=== PATIENT | female | born 1940 | race Two or more races ===

== ENCOUNTER 2023-06-25 12:18 | Emergency (ER) | payer OTHER ==
[~2023-06-25] VITALS: Ht 157.5 cm; Wt 54.0 kg
[2023-06-25] MEDS ORDERED: COZAAR25 MG PO (12:26)
== END 2023-06-25 15:27 | disposition home or self-care (01) ==
LOC: ER 12:18
DX: B30.1 Conjunctivitis due to adenovirus (principal); M19.90 Unspecified osteoarthritis, unspecified site; Z98.41 Cataract extraction status, right eye; Z20.822 Contact with and (suspected) exposure to COVID-19
CPT/HCPCS: 36415; 93005; 96365; 99284; J1100

== ENCOUNTER 2023-10-24 10:24 | Outpatient (CLI) | payer OTHER ==
[~2023-10-24 10:24] MED LIST: COZAAR25 MG PO
== END 2023-10-24 10:31 | disposition home or self-care (01) ==
LOC: RX STUDY 10:24
PROVIDERS: ATTEND Internal Medicine Gastroenterology
DX: K21.9 Gastro-esophageal reflux disease without esophagitis (principal); K59.9 Functional intestinal disorder, unspecified; K31.89 Other diseases of stomach and duodenum; K31.84 Gastroparesis; R11.0 Nausea

== ENCOUNTER 2025-03-17 13:11 | Emergency (ER) | payer OTHER ==
[~2025-03-17] VITALS: Ht 157.5 cm; Wt 52.2 kg
[2025-03-17] MEDS ORDERED: LOSARTAN POTASS50 MG PO (13:18)
[2025-03-17] MEDS ORDERED: PEPCID AC20 MG PO (13:18)
[2025-03-17] MEDS ORDERED: FOSAMAX70 MG PO (13:18)
[2025-03-17] MEDS ORDERED: CLARITIN10 M1 PO (13:18)
[2025-03-17] MEDS ORDERED: ALLERGY RELIE15.8 ML NS (13:18)
[2025-03-17] MEDS ORDERED: MOMETASONE FURO15 G1 (13:19)
[2025-03-17] MEDS ORDERED: ROSUVASTATIN CAL5 MG PO (13:20)
[2025-03-17] MEDS ORDERED: IPRATROPIUM BROMIDE 0.5 MG/2.5 ML AMPUL.NEB IH ONE (13:45)
[2025-03-17] MEDS ORDERED: LEVALBUTEROL HCL 1.25 MG/3 ML SOLUTION IH ONE (13:45)
[2025-03-17] MEDS ORDERED: METHYLPREDNISOLONE SOD SUCC 125 MG VIAL IV ONE (13:45)
[2025-03-17] MEDS ORDERED: BENZONATATE 200 MG CAPSULE PO ONE (14:00)
[2025-03-17 14:16] LABS: BASO % 0.9 % (0.1-1.2); EOS # 0.30 (0.04-0.54); EOS % 6.8 % (0.7-7.0); LYMPH # 0.95 (1.18-3.74); LYMPH % 21.6 % (19.3-53.1); MEAN PLATELET VOLUME 9.80 fl (9.4-12.4); MONO # 0.52 (0.24-0.82); MONO % 11.8 % (4.7-12.5); NEUT # 2.59 (1.56-6.13); NEUT % 58.9 % (34.0-71.1); RED CELL DISTRIBUTION WIDTH 12.2 % (11.6-14.4)
[2025-03-17 14:38] LABS: COVID-19 AG NEGATIVE (NEGATIVE)
[2025-03-17 14:45] LABS: INR 1.05
[2025-03-17 15:33] LABS: ALT/SGPT 19.0 U/L (12-78); AST/SGOT 23.0 U/L (15-37); BILIRUBIN TOTAL 0.56 mg/dL (0.3-1.2); BUN CREA RATIO 18.0 (7.0-25.0); CREATININE SERUM 0.78 mg/dL (0.55-1.02); GFR 70.19; GLOBULINA 3.3 G/DL (2.4-3.5); GLUCOSE FASTING 98.0 mg/dL (65-100); OSMOLALITY SERUM 280.0 MOSM/KG (275-295)
[2025-03-17 15:34] LABS: ABG PH 7.440 (7.35-7.45); ABG PO2 71.9 mmHg (80-100); BICARBONATE 25.8 mmol/l (23-25); o2 21 %
[2025-03-17 15:46] LABS: URINE APPEARANCE Clear; URINE BILIRRUBIN Negative (NEGATIVE); URINE BLOOD Negative; URINE COLOR Yellow; URINE GLUCOSE Negative (NEGATIVE); URINE KETONE Negative (NEGATIVE); URINE LEUKOCYTE Trace; URINE NITRATE Negative; URINE PROTEIN Negative (NEGATIVE); URINE UROBILINOGEN 0.2 E.U./dl
[2025-03-17] MEDS ORDERED: LEVALBUTER0.63 MG/3 IH (15:47)
[2025-03-17] MEDS ORDERED: BENZONATATE200 M1 PO (15:47)
[2025-03-17] MEDS ORDERED: SINGULAIR10 MG PO (15:47)
[2025-03-17 15:49] LABS: URINE BACTERIA 15.6 uL (0.0-1933); URINE EPITHELIAL CELLS 2.9 uL (0.0-38.8); URINE RBC 6.5 uL (0.0-20.8); URINE WBC 14.3 uL (0.0-23.2)
[2025-03-17 15:51] LABS: URINE CAST 0.14 uL (0.0-1.40)
== END 2025-03-17 16:59 | disposition home or self-care (01) ==
LOC: ER 13:11
PROVIDERS: General Practice
DX: R06.02 Shortness of breath (principal); J45.909 Unspecified asthma, uncomplicated; Z20.822 Contact with and (suspected) exposure to COVID-19; I10 Essential (primary) hypertension; Z88.0 Allergy status to penicillin
CPT/HCPCS: 36415; 71045; 82803; 93005; 94640; 96365; 99283; J3490

== ENCOUNTER 2025-05-23 15:53 | Inpatient (IN) | payer OTHER ==
[~2025-05-23] VITALS: Ht 162.6 cm; Wt 82.1 kg
[~2025-05-23 15:53] MED LIST changes: +ALLERGY RELIE15.8 ML NS; +BENZONATATE200 M1 PO; +CLARITIN10 M1 PO; +FOSAMAX70 MG PO; +LEVALBUTER0.63 MG/3 IH; +LOSARTAN POTASS50 MG PO; +MOMETASONE FURO15 G1; +PEPCID AC20 MG PO; +ROSUVASTATIN CAL5 MG PO; +SINGULAIR10 MG PO
--- NOTE | 2025-05-23 16:00 | NUR ---
SE RECIBE A PTE EN AMBULANCIA. PTE ALERTA Y ORIENTADA X3. REFIERE DOLOR Y ADORMENCIMIENTO EN AMBOS PIES DESDE HACE WANG.
[2025-05-23] MEDS ORDERED: AMLODIPINE BESYL5 MG PO (16:01)
[2025-05-23] MEDS ORDERED: MONTELUKAST SOD10 MG PO (16:02)
[2025-05-23] MEDS ORDERED: KETOROLAC TROMETHAMINE 30 MG VIAL IV ONE (17:45)
[2025-05-23] MEDS ORDERED: KETOROLAC TROMETHAMINE 30 MG VIAL ONE (17:45)
[2025-05-23 19:19] LABS: BASO % 0.8 % (0.1-1.2); EOS # 0.15 (0.04-0.54); EOS % 3.2 % (0.7-7.0); LYMPH # 1.68 (1.18-3.74); LYMPH % 35.3 % (19.3-53.1); MEAN PLATELET VOLUME 9.80 fl (9.4-12.4); MONO # 0.38 (0.24-0.82); MONO % 8.0 % (4.7-12.5); NEUT # 2.50 (1.56-6.13); NEUT % 52.5 % (34.0-71.1); RED CELL DISTRIBUTION WIDTH 13.1 % (11.6-14.4)
[2025-05-23 20:03] LABS: ALT/SGPT 25.0 U/L (12-78); AST/SGOT 29.0 U/L (15-37); BILIRUBIN TOTAL 0.54 mg/dL (0.3-1.2); BUN CREA RATIO 15.0 (7.0-25.0); CREATININE SERUM 0.74 mg/dL (0.55-1.02); GFR 74.59; GLOBULINA 3.5 G/DL (2.4-3.5); GLUCOSE FASTING 108.0 mg/dL (65-100); OSMOLALITY SERUM 283.0 MOSM/KG (275-295)
[2025-05-23 20:05] LABS: D DIMER 3.54 MG/L
[2025-05-23 20:29] LABS: INR 1.0
[2025-05-23 20:48] LABS: URINE APPEARANCE Clear; URINE BILIRRUBIN Negative (NEGATIVE); URINE BLOOD Negative; URINE COLOR Yellow; URINE GLUCOSE Negative (NEGATIVE); URINE KETONE Negative (NEGATIVE); URINE LEUKOCYTE Small; URINE NITRATE Negative; URINE PROTEIN Negative (NEGATIVE); URINE UROBILINOGEN 0.2 E.U./dl
[2025-05-23 20:52] LABS: URINE BACTERIA 60.0 uL (0.0-1933); URINE EPITHELIAL CELLS 6.1 uL (0.0-38.8); URINE WBC 15.6 uL (0.0-23.2)
[2025-05-23 20:58] LABS: URINE CAST 0.00 uL (0.0-1.40); URINE RBC 1.9 uL (0.0-20.8)
--- NOTE | 2025-05-23 22:35 | NUR ---
PACIENTE EVALUADA POR MD TORRESIEN ORDENA TRATAMIENTO MEDICO, RN RENETTA LE ORIENTA A PACIENTE SOBRE EL MISMO Y REFIERE ENTENDER, SE LE COLECTA MUESTRAS Y SE LE CANALIZA BAJO MEDIDAS ASEPTICAS. AREA DE VENOPUNCION PATENTE, ZAIRE DE EDEMA Y ERITEMA. SE LE ADMINISTRAN MEDICAMENTOS BAJO MEDIDAS ASEPTICAS.
[2025-05-24] MEDS ORDERED: DIPHENHYDRAMINE HCL 50 MG/ML VIAL 1ML IV ONE (01:15)
[2025-05-24] MEDS ORDERED: METHYLPREDNISOLONE SOD SUCC 40 MG VIAL IV ONE (01:15)
[2025-05-24] MEDS ORDERED: METHYLPREDNISOLONE SOD SUCC 40 MG VIAL ONE (01:22)
[2025-05-24] MEDS ORDERED: DIPHENHYDRAMINE HCL 50 MG/ML VIAL 1ML ONE (01:22)
[2025-05-24] MEDS ORDERED: ENOXAPARIN SODIUM 80 MG/0.8 ML SYRINGE SUBCUTANEO SCH ×2 (01:29→17:00)
[2025-05-24] MEDS ORDERED: ENOXAPARIN SODIUM 80 MG/0.8 ML SYRINGE SUBCUTANEO ONE (02:59)
[2025-05-24] MEDS ORDERED: IPRATROPIUM BROMIDE 0.5 MG/2.5 ML AMPUL.NEB IH SCH (05:07)
[2025-05-24] MEDS ORDERED: 0.9 % SODIUM CHLORIDE 1,000 ML IV SCH (05:15)
[2025-05-24] MEDS ORDERED: ACETAMINOPHEN 500 MG GEL..CAP PO PRN (05:15)
[2025-05-24 05:56] VITALS: BP 165/72; O2SAT 95
[2025-05-24 06:12] VITALS: BP 165/72
[2025-05-24 08:20] VITALS: BP 151/68; O2SAT 97
[2025-05-24] MEDS ORDERED: ROSUVASTATIN CALCIUM 10 MG TABLET PO SCH (09:00)
[2025-05-24] MEDS ORDERED: FAMOTIDINE/PF 20 MG in 0.9 % SODIUM CHLORIDE 8 ML IV PUSH SCH (09:00)
[2025-05-24] MEDS ORDERED: AMLODIPINE BESYLATE 5 MG TABLET PO SCH (09:00)
[2025-05-24] MEDS ORDERED: KETOROLAC TROMETHAMINE 60 MG VIAL IM ONE (13:07)
[2025-05-24 16:02] VITALS: BP 112/65; O2SAT 98
[2025-05-25 02:19] VITALS: BP 91/50; O2SAT 94
[2025-05-25 09:06] VITALS: BP 136/70; O2SAT 98
[2025-05-25 16:11] VITALS: BP 113/69; O2SAT 97
[2025-05-25] MEDS ORDERED: APIXABAN 5 MG TABLET PO SCH (21:00)
[2025-05-26 02:49] VITALS: BP 112/66; O2SAT 98
[2025-05-26 08:18] VITALS: BP 134/83
[2025-05-26] MEDS ORDERED: IPRATROPIUM BROMIDE 0.5 MG/2.5 ML AMPUL.NEB IH SCH (09:00)
[2025-05-26 15:53] VITALS: BP 112/77; O2SAT 96
[2025-05-27 01:23] VITALS: BP 111/54; O2SAT 96
[2025-05-27 17:56] VITALS: BP 123/68
== END 2025-05-27 21:33 | disposition home or self-care (01) | DRG 176 ==
LOC: ER 15:53 → MEDI 05-24 05:31 → ICU-2 05-24 05:31 → MEDI 05-24 12:27
PROVIDERS: General Practice; ADMIT Internal Medicine; ATTEND Internal Medicine
PROC: BB24YZZ Computerized Tomography (CT Scan) of Bilateral Lungs using Other Contrast (ICD-10-PCS; principal; 2025-05-23)
PROC: B32SYZZ Computerized Tomography (CT Scan) of Right Pulmonary Artery using Other Contrast (ICD-10-PCS; 2025-05-23)
PROC: 4A033R1 Measurement of Arterial Saturation, Peripheral, Percutaneous Approach (ICD-10-PCS; 2025-05-23)
PROC: 3E0F7GC Introduction of Other Therapeutic Substance into Respiratory Tract, Via Natural or Artificial Opening (ICD-10-PCS; 2025-05-24)
PROC: B246ZZZ Ultrasonography of Right and Left Heart (ICD-10-PCS; 2025-05-24)
PROC: B54DZZZ Ultrasonography of Bilateral Lower Extremity Veins (ICD-10-PCS; 2025-05-24)
DX: I26.99 Other pulmonary embolism without acute cor pulmonale (principal); J45.909 Unspecified asthma, uncomplicated; R60.0 Localized edema; I10 Essential (primary) hypertension